=== PATIENT | male | born 1965 | race Caucasian/White ===

== ENCOUNTER 2020-01-10 20:06 | Emergency (ER) | payer MEDICAID ==
[~2020-01-10] VITALS: Ht 170.2 cm; Wt 72.0 kg
[~2020-01-10 20:06] MED LIST: CEPH-569 MT; FERR236T3 MT; omeprazole; zanaflex
[2020-01-10] MEDS ORDERED: LIDOCAINE HCL/EPINEPHRINE 1%-EPI 1:100,000 30 ML VIAL INFIL ONE (21:45)
[2020-01-10] MEDS ORDERED: LIDOCAINE HCL/EPINEPHRINE 1%-EPI 1:100,000 20 ML VIAL INFIL NR (22:00)
[2020-01-11 04:30] VITALS: BP 128/39
== END 2020-01-11 06:12 | disposition home or self-care (01) ==
LOC: MERGE 20:06 → ER 20:06
DX: S09.8XXA Other specified injuries of head, initial encounter (principal); S01.81XA Laceration without foreign body of other part of head, initial encounter; I10 Essential (primary) hypertension; Y08.89XA Assault by other specified means, initial encounter; Y93.89 Activity, other specified; Y92.9 Unspecified place or not applicable
CPT/HCPCS: 12013; 36415; 70450; 80320; 99285; J3490; G0480

== ENCOUNTER 2020-12-15 15:43 | Emergency (ER) | payer SELFPAY ==
[~2020-12-15] VITALS: Ht 167.6 cm; Wt 80.0 kg
[2020-12-15 16:26] LABS: BASOPHILS % 3.4 % (0.0-2.0); EOSINOPHILS % 3.1 % (0.0-5.0); HEMATOCRIT. 26.8 % (42.0-52.0); HEMOGLOBIN. 8.9 g/dL (14.0-18.0); LYMPHOCYTES % 43.6 % (20.0-50.0); MEAN CORPUSCULAR HEMOGLOBIN 28.8 pg (28.0-32.0); MEAN CORPUSCULAR VOLUME 86.4 fL (80.0-94.0); MEAN PLATELET VOLUME 7.4 fl (7.4-10.4); MONOCYTES % 14.2 % (2.0-8.0); NEUTROPHILS % 35.7 % (40.0-76.0); PLATELET 172 x1000/uL (130-400); RED BLOOD CELL COUNT 3.11 mill/uL (4.7-6.1); RED CELL DISTRIBUTION WIDTH 21.2 % (11.6-14.6)
[2020-12-15 16:29] LABS: CHLORIDE 105 mEq/L (98-107)
[2020-12-15 16:50] LABS: ETHANOL BLOOD 457 mg/dL
[2020-12-15] MEDS ORDERED: CHLORDIAZEPOXIDE 25MG CAPSULE PO ONE (17:00)
[2020-12-15 19:45] LABS: CLARITY URINE CLEAR (CLEAR); COLOR URINE YELLOW (YELLOW); KETONES URINE NEGATIVE (NEGATIVE); LEUKOCYTE ESTERASE URINE NEGATIVE (NEGATIVE); NITRITE URINE NEGATIVE (NEGATIVE); OCCULT BLOOD URINE TRACE (NEGATIVE); PROTEIN URINE NEGATIVE (NEGATIVE); SPECIFIC GRAVITY URINE 1.005 (1.005-1.030); UROBILINOGEN URINE 0.2 E.U./dL (0.2-1.0)
[2020-12-15 20:33] LABS: *AMPHETAMINES SCREEN URINE NEGATIVE (NEGATIVE); *BARBITURATES SCREEN URINE NEGATIVE (NEGATIVE); *BENZODIAZEPINES SCREEN URINE NEGATIVE (NEGATIVE); *COCAINE SCREEN URINE NEGATIVE (NEGATIVE); CANNABINOID URINE SCREEN NEGATIVE (NEGATIVE); METHADONE URINE SCREEN NEGATIVE (NEGATIVE); OPIATES URINE SCREEN NEGATIVE (NEGATIVE); PHENCYCLIDINE URINE SCREEN NEGATIVE (NEGATIVE)
[2020-12-15 21:27] VITALS: BP 112/60
== END 2020-12-15 21:28 | disposition home or self-care (01) ==
LOC: ER 15:43
DX: F10.129 Alcohol abuse with intoxication, unspecified (principal); Y90.8 Blood alcohol level of 240 mg/100 ml or more; T51.91XA Toxic effect of unspecified alcohol, accidental (unintentional), initial encounter; Y92.9 Unspecified place or not applicable
CPT/HCPCS: 36415; 80053; 80305; 80320; 81003; 85025; 99285; G0480

== ENCOUNTER 2021-12-13 15:21 | Emergency (ER) | payer MEDICAID ==
[~2021-12-13] VITALS: Ht 172.7 cm; Wt 68.0 kg
[2021-12-14 09:38] VITALS: BP 142/62
[2021-12-17] MEDS ORDERED: AMOX1TAB15 MT (13:16)
== END 2021-12-14 09:40 | disposition home or self-care (01) ==
LOC: ER 15:21
DX: M79.672 Pain in left foot (principal); M79.671 Pain in right foot
CPT/HCPCS: 36415; 80320; 82962; 99285; G0480

== ENCOUNTER 2022-01-20 11:30 | Emergency (ER) | payer MEDICAID ==
[~2022-01-20] VITALS: Ht 167.6 cm; Wt 68.0 kg
[~2022-01-20 11:30] MED LIST changes: +AMOX1TAB15 MT
[2022-01-20 11:37] VITALS: BP 134/60
== END 2022-01-20 17:31 | disposition left against medical advice (07) ==
LOC: ER 11:30
DX: Z53.21 Procedure and treatment not carried out due to patient leaving prior to being seen by health care provider (principal)
CPT/HCPCS: 99283